=== PATIENT | male | born 1955 | race Caucasian/White ===

== ENCOUNTER → 2018-10-13 | Outpatient (REF) | payer BC ==
[2018-10-13 18:20] LABS: APPEARANCE, URINE CLEAR (CLEAR); BACTERIA, URINE AUTO NEGATIVE (NEGATIVE); BILIRUBIN, URINE AUTO NEGATIVE (NEGATIVE); BLOOD, URINE BLOOD NEGATIVE (NEGATIVE); COLOR, URINE YELLOW (YELLOW); GLUCOSE, URINE (UA) AUTO NEGATIVE (NEGATIVE); KETONE, URINE AUTO NEGATIVE (NEGATIVE); LEUKOCYTE ESTERASE, URINE AUTO NEGATIVE (NEGATIVE); MUCUS, URINE SMALL (NEGATIVE); NITRITE, URINE AUTO NEGATIVE (NEGATIVE); PROTEIN, URINE AUTO NEGATIVE (NEGATIVE); RBC, URINE AUTO 0 /HPF (0-3); SPECIFIC GRAVITY URINE AUTO 1.021 (1.002-1.035); SQUAMOUS EPITHELIAL CELL UR AU 0 /HPF (0-6); WBC, URINE AUTO 0 /HPF (0-3)
== END ==
LOC: M SMT 17:26
PROVIDERS: ATTEND Urology
DX: N40.1 Benign prostatic hyperplasia with lower urinary tract symptoms (principal)

== ENCOUNTER → 2018-11-09 | Outpatient (REF) | payer BC | LOC: M SMT 18:20 | PROVIDERS: ATTEND Urology | DX: N50.811 Right testicular pain (principal) ==

== ENCOUNTER → 2018-11-26 | Outpatient (CLI) | payer BC ==
--- NOTE | 2018-11-26 17:54 | REP ---
SCROTAL ULTRASOUND: Real-time sonographic evaluation of the scrotum and contents was performed. There is no testicular mass or torsion. Right testicle measures 4.8 x 2.6 x 3.3 cm and left testicle 3.9 x 1.9 x 3.6 cm. RI right testicle 0.54 and left testicle 0.58. Small bilateral hydroceles are seen. Testicular appendage appears to be present superiorly on the right. Small cyst in the right epididymis measures 3 mm. Small cyst along the body of the left epididymis measures 4 mm. IMPRESSION: No testicular mass or torsion. Small bilateral hydroceles. Tiny cyst in each epididymis. Electronically Signed by Riki Arita MD 11/26/2018 06:56 P
== END ==
LOC: M RAD 14:05
PROVIDERS: ATTEND Urology
DX: N50.811 Right testicular pain (principal)

== ENCOUNTER → 2019-02-01 | Outpatient (CLI) | payer BC ==
[2019-02-01 15:03] LABS: BASO % 0.5 % (0.0-1.0); EOS # 0.2 10^3/uL (0.0-0.5); EOS % 2.3 % (0.0-3.0); HEMOGLOBIN 15.9 g/dl (13.5-17.5); LYMPH # 1.4 10^3/uL (1.5-5.0); LYMPH % 15.9 % (24.0-44.0); MEAN CORPUSCULAR HEMOGLOBIN 30.6 pg (27.0-33.0); MEAN CORPUSCULAR HGB CONC 31.8 g/dl (32.0-36.5); MEAN CORPUSCULAR VOLUME 96.3 fl (80.0-96.0); MONO # 0.7 10^3/uL (0.0-0.8); MONO % 7.8 % (0.0-5.0); NEUTROPHILS # 6.2 10^3/uL (1.5-8.5); PLATELET COUNT, AUTOMATED 249 10^3/uL (150-450); RED BLOOD COUNT 5.19 10^6/uL (4.30-6.10); WHITE BLOOD COUNT 8.6 10^3/uL (4.0-10.0)
[2019-02-01 15:14] LABS: BLOOD UREA NITROGEN 16 MG/DL (7-18); CREATININE FOR GFR 0.84 MG/DL (0.70-1.30); GLOMERULAR FILTRATION RATE > 60.0 (>49)
== END ==
LOC: M LAB 14:21
PROVIDERS: ATTEND Internal Medicine Gastroenterology
DX: K92.1 Melena (principal)

== ENCOUNTER → 2019-02-18 | Outpatient (CLI) | payer BC ==
[~2019-02-18] MED LIST: GLUCAGON FOR INJ 1 MG VIAL (J1610) As Ordered ONE; ISOVUE-370 76% 100ML VIAL (Q9967) As Ordered ONE; VoLumen 0.1% SUSPENSION 450ML BOTTLE As Ordered ONE
--- NOTE | 2019-02-23 18:06 | REP ---
CT Enterography: With IV and oral contrast. History: Abnormal findings on diagnostic imaging. Comparison study: Comparison CT study has been retrieved from August 01, 2018 [facility] study. This study is reported as showing haziness in the mid abdominal mesentery with prominent mesenteric lymph nodes consistent with mesenteric panniculitis. CT enterography technique: The patient ingested oral Volumen for PO contrast per protocol. 0.6 mg of intravenous glucagon is administered. 100 ml of Isovue 370 is given intravenously for intravenous contrast. Helical scanning is acquired. Arterial phase and delayed phase imaging was acquired. Thick slab coronal and sagittal MIP images are generated. In addition coronal and sagittal multiplanar re-formation images are generated and reviewed along with axial images. CT enterography findings: Preliminary linux engineer radiograph is unremarkable. There is linear fibrosis versus atelectasis in the right base. Some bronchiectasis is seen in the lower lobes bilaterally and there is some inspissated endobronchial material in the right lower lobe segmental bronchi. This is unchanged. The liver contains a small hypervascular area in the left lobe, unchanged from the August 01 prior study, 1.2 cm in greatest diameter, consistent with hemangioma. No other focal liver lesion is appreciated. The spleen is normal in size and homogeneous in texture. No adrenal lesion is seen on either side. The patient is status post gastric bypass procedure. No pancreatic abnormality is seen. The gallbladder is unremarkable. The kidneys enhance symmetrically and are morphologically intact. No retroperitoneal mass is seen. The previously noted pattern of edema in the small bowel mesentery is again seen unchanged. The mesenteric veins appear patent as do mesenteric arteries. There are a few scattered small normal-sized lymph nodes. This is compatible with mesenteric panniculitis and is morphologically unchanged. Small and large bowel loops are unremarkable. Normal appendix is seen. Prostate is enlarged. There is a left inguinal hernia containing a fairly large segment of the urinary bladder. This is unchanged. Maximum intensity projection images and delayed postcontrast images show no evidence of hyper-enhancement, focally absent bowel wall enhancement, or bowel wall thickening. No mass lesion is seen. There are small cortical cysts affecting the kidneys bilaterally. Impression: Status post gastric bypass procedure. Edematous fat in the small bowel mesentery with a few scattered normal-sized lymph nodes consistent with mesenteric panniculitis unchanged. No vascular abnormality is seen. Left inguinal hernia containing a large portion of the urinary bladder is again noted. The prostate is enlarged. Electronically Signed by Ben Lee MD 02/24/2019 08:09 A
== END ==
LOC: M RAD 11:15
PROVIDERS: ATTEND Internal Medicine Gastroenterology
DX: R93.3 Abnormal findings on diagnostic imaging of other parts of digestive tract (principal); J47.9 Bronchiectasis, uncomplicated; K76.89 Other specified diseases of liver; N40.0 Benign prostatic hyperplasia without lower urinary tract symptoms; Z98.84 Bariatric surgery status; K40.90 Unilateral inguinal hernia, without obstruction or gangrene, not specified as recurrent
CPT/HCPCS: 74177; J1610; Q9967

== ENCOUNTER 2019-04-08 07:04 | Day surgery (SDC) | payer BC ==
[~2019-04-08] VITALS: Ht 175.3 cm; Wt 92.5 kg
[~2019-04-08 07:04] MED LIST changes: +ANOR1AER IN; +B-12100T2 PO; +FENO145T7 PO; +FEROCAP3 PO; +FLOM0.4C39 PO; +FLUT50SP33; -GLUCAGON FOR INJ 1 MG VIAL (J1610) As Ordered ONE; -ISOVUE-370 76% 100ML VIAL (Q9967) As Ordered ONE; +K-TA10TA2 PO; +LR 1,000 ML IV ONE; +MUCI600T31 PO; +SIMV40TA20 PO; +TRIA37.5 PO; +VIAG100T PO; +VITA400T15 PO; -VoLumen 0.1% SUSPENSION 450ML BOTTLE As Ordered ONE; +ceFAZolin SOD 1 GM in D5W MINI-BAG PLUS 50 ML IV ONE; +ceFAZolin SOD 2 GM in IV 1 EA IV ONE
[2019-04-08] MEDS ORDERED: AMLO5TAB6 PO (07:34)
[2019-04-08] MEDS ORDERED: HYDR25TAB PO (07:34)
[2019-04-08] MEDS ORDERED: propofoL 200 MG/20 ML VIAL As Ordered ONE (08:07)
[2019-04-08] MEDS ORDERED: ONDANSETRON 4MG/2ML VIAL (J2405) As Ordered ONE (08:07)
[2019-04-08] MEDS ORDERED: dexameTHASONE 4 MG/ML 1ML VIAL (J1100) As Ordered ONE (08:07)
[2019-04-08] MEDS ORDERED: LIDOCAINE 2% INJ 100 MG/5 ML SDV (FOR ANES.) As Ordered ONE (08:07)
[2019-04-08] MEDS ORDERED: MIDAZOLAM INJ 2 MG/2 ML VIAL (J2250) As Ordered ONE (08:08)
[2019-04-08] MEDS ORDERED: fentaNYL 100 MCG/2 ML INJECTION (J3010) As Ordered ONE (08:08)
[2019-04-08] MEDS ORDERED: BUPIVACAINE HCL 0.25% 30 ML VIAL As Ordered ONE (09:03)
[2019-04-08] MEDS ORDERED: BACITRACIN OINT 30GM As Ordered ONE (09:03)
[2019-04-08] MEDS ORDERED: ACETAMINOPHEN 1000MG 100ML IV BTL (OFIRMEV) (J0131 PER 10MG) As Ordered ONE (09:38)
[2019-04-08] MEDS ORDERED: PERCOCET 5MG/325MG TAB As Ordered ONE (10:35)
[2019-04-08] MEDS: PERCOCET 5MG/325MG TAB PO PRN ×2 (10:40→11:15)
[2019-04-08] MEDS ORDERED: LR 1,000 ML IV SCH (11:00)
[2019-04-08] MEDS ORDERED: METOCLOPRAMIDE INJ 10MG/2ML VIAL (J2765) IV PRN (11:00)
[2019-04-08] MEDS ORDERED: ONDANSETRON 4MG/2ML VIAL (J2405) IV PRN (11:00)
[2019-04-08] MEDS ORDERED: fentaNYL 100 MCG/2 ML INJECTION (J3010) IV PRN (11:00)
[2019-04-08] MEDS ORDERED: PERCOCET 5MG/325MG TAB PO PRN (11:00)
[2019-04-08 13:12] VITALS: BP 125/77
--- NOTE | 2019-04-08 18:54 | RO ---
DATE OF PROCEDURE: 04/08/2019 PREPROCEDURE DIAGNOSIS: Chronic right epididymal orchitis and chronic right testicular pain. POSTPROCEDURE DIAGNOSIS: Chronic right epididymal orchitis and chronic right testicular pain. PROCEDURE: Right simple orchiectomy. SURGEON: Manjit Kerr MD PALLIATIVE MEDICINE PHYSICIAN: None. ANESTHESIA: General. OPERATIVE INDICATIONS: This is a 63-year-old male with intractable pain due to chronic right epididymal orchitis who has not responded to any treatments. He was brought to the operating room for the above listed procedure. DESCRIPTION OF PROCEDURE: The patient was brought to the operating room and general anesthesia was induced. Prophylactic antibiotics were infused. He was then placed in the supine position and prepped and draped in the usual sterile fashion. At this point, an approximately 3-4 cm transverse incision was made over the right hemiscrotum. We then dissected down through the scrotal wall layers and then the testicle delivered out of the right hemiscrotum. We then dissected the spermatic cord as high as we could and then the cord was ligated. We put a large Shivani clamp on the proximal aspect of the cord and then distal to that the spermatic cord packet was into two different packets and two Shivani clamps were placed on that. The spermatic cord was then transected distal to the last two Shivani clamps. Each of the packets were then ligated with #0 Vicryl ties. I then placed an #0 Vicryl suture ligature just proximal to the most proximal Shivani clamp around the entire cord. Once that was done, the clamps were removed. It was checked for hemostasis. Any areas of bleeding were controlled with electrocautery. The right hemiscrotum was then irrigated out and then we began to close. First the dartos was closed with a running #2-0 Vicryl suture. We then closed the skin with interrupted #2-0 chromic sutures. Dressings were then applied, and this marked the conclusion of the procedure. The patient was then awakened from anesthesia and transported to the recovery room in stable condition. Estimated blood loss is 5 mL. Complications: None. Specimens: Right testicle. Plan: The patient will followup in the clinic in a few weeks for a postoperative visit.
== END 2019-04-08 13:13 | disposition home or self-care (01) ==
LOC: M SDC 07:04
PROVIDERS: ATTEND Urology
DX: N45.3 Epididymo-orchitis (principal); N50.811 Right testicular pain; I10 Essential (primary) hypertension; E78.5 Hyperlipidemia, unspecified; J44.9 Chronic obstructive pulmonary disease, unspecified; D64.9 Anemia, unspecified; Z87.891 Personal history of nicotine dependence; Z79.899 Other long term (current) drug therapy
CPT/HCPCS: 54520; 88305; J0131; J0690; J1100; J2250; J2405; J3010

== ENCOUNTER → 2019-05-23 | Outpatient (CLI) | payer MEDICARE ==
[~2019-05-23] MED LIST changes: +AMLO5TAB6 PO; +CALC600C3 PO; +GLYC1SUP4 PR; +HYDR25TAB PO; -LR 1,000 ML IV ONE; +PEG1POW PO; +SM S160C PO; -ceFAZolin SOD 1 GM in D5W MINI-BAG PLUS 50 ML IV ONE; -ceFAZolin SOD 2 GM in IV 1 EA IV ONE
== END ==
LOC: M LAB 07:55
PROVIDERS: ATTEND Urology
DX: E29.1 Testicular hypofunction (principal)

== ENCOUNTER → 2019-05-23 | Outpatient (REF) | payer MEDICARE | LOC: M LAB REF 17:08 | PROVIDERS: ATTEND Physician Assistant | DX: J44.9 Chronic obstructive pulmonary disease, unspecified (principal) ==

== ENCOUNTER → 2019-05-31 | Outpatient (CLI) | payer MEDICARE ==
--- NOTE | 2019-05-31 15:24 | REP ---
Clinical: Lung screening. History smoking. Comparison: 10/20/2017 Technique: Axial low-dose noncontrast images from the thoracic inlet to the upper abdomen using lung screening technique. Findings: The lung amato demonstrate advanced COPD/emphysematous changes with bronchiectasis. There is moderate chronic-appearing bibasilar fibroatelectatic changes (left greater than right) along with minimal scarring at the lingula and basilar right middle lobe. No obvious significant nodule or mass lesion is appreciated. No effusion. No pneumothorax. Tracheobronchial tree is relatively patent. Atherosclerotic changes to the thoracic aorta and coronary arteries noted. Impression: Lung-RADS category II. Advanced emphysematous disease and chronic stable changes when compared to outside examination dated 2017. No significant nodule or mass lesion appreciated. Management recommendations include annual low-dose follow-up examination. Electronically Signed by Godwin Brothers MD 05/31/2019 03:16 P
== END ==
LOC: M RAD 14:56
PROVIDERS: ATTEND Internal Medicine Pulmonary Disease
DX: Z87.891 Personal history of nicotine dependence (principal)

== ENCOUNTER → 2019-07-21 | Outpatient (CLI) | payer MEDICARE ==
[2019-07-21 10:55] LABS: HEMATOCRIT 45.3 % (42.0-52.0); HEMOGLOBIN 15.2 g/dl (13.5-17.5); MEAN CORPUSCULAR HEMOGLOBIN 31.9 pg (27.0-33.0); MEAN CORPUSCULAR HGB CONC 33.6 g/dl (32.0-36.5); MEAN CORPUSCULAR VOLUME 95.2 fl (80.0-96.0); PLATELET COUNT, AUTOMATED 218 10^3/uL (150-450); RED BLOOD COUNT 4.76 10^6/uL (4.30-6.10); WHITE BLOOD COUNT 4.9 10^3/uL (4.0-10.0)
[2019-07-21 13:12] LABS: ALBUMIN 3.7 GM/DL (3.2-5.2); ALT/SGPT 45 U/L (12-78); BILIRUBIN,TOTAL 0.6 MG/DL (0.2-1.0); BLOOD UREA NITROGEN 19 MG/DL (7-18); CALCIUM LEVEL 8.6 MG/DL (8.8-10.2); CARBON DIOXIDE LEVEL 35 MEQ/L (21-32); CHLORIDE LEVEL 103 MEQ/L (98-107); CREATININE FOR GFR 0.72 MG/DL (0.70-1.30); FERRITIN 168 NG/ML (26-388); GLOMERULAR FILTRATION RATE > 60.0 (>49); GLUCOSE, FASTING 84 MG/DL (70-100); IRON (FE) 71 UG/DL (65-175); POTASSIUM SERUM 3.6 MEQ/L (3.5-5.1); SODIUM LEVEL 142 MEQ/L (136-145); TOTAL PROTEIN 6.5 GM/DL (6.4-8.2)
[2019-07-21 13:13] LABS: TOTAL 25(OH) VITAMIN D 64.9 NG/ML (30.0-100.0)
[2019-07-21 13:14] LABS: FOLATE 16.8 NG/ML (>5.4); PTH INTACT 66.1 PG/ML (18.5-88.0); VITAMIN B12 LEVEL 750 PG/ML (247-911)
== END ==
LOC: M WUC 08:25
PROVIDERS: ATTEND Physician Assistant Surgical
DX: K90.9 Intestinal malabsorption, unspecified (principal)

== ENCOUNTER → 2019-07-21 | Outpatient (CLI) | payer MEDICARE ==
[2019-07-21 10:55] LABS: BASO % 0.8 % (0.0-1.0); EOS # 0.2 10^3/uL (0.0-0.5); EOS % 3.8 % (0.0-3.0); HEMOGLOBIN 14.7 g/dl (13.5-17.5); LYMPH % 19.2 % (24.0-44.0); MEAN CORPUSCULAR HEMOGLOBIN 31.1 pg (27.0-33.0); MEAN CORPUSCULAR HGB CONC 32.7 g/dl (32.0-36.5); MEAN CORPUSCULAR VOLUME 95.3 fl (80.0-96.0); MONO # 0.4 10^3/uL (0.0-0.8); MONO % 7.9 % (0.0-5.0); NEUTROPHILS # 3.4 10^3/uL (1.5-8.5); NEUTROPHILS % 67.9 % (36.0-66.0); PLATELET COUNT, AUTOMATED 214 10^3/uL (150-450); RED BLOOD COUNT 4.72 10^6/uL (4.30-6.10); WHITE BLOOD COUNT 4.9 10^3/uL (4.0-10.0)
[2019-07-21 13:16] LABS: ALBUMIN 3.6 GM/DL (3.2-5.2); ALT/SGPT 43 U/L (12-78); BILIRUBIN,TOTAL 0.6 MG/DL (0.2-1.0); BLOOD UREA NITROGEN 19 MG/DL (7-18); CALCIUM LEVEL 8.3 MG/DL (8.8-10.2); CARBON DIOXIDE LEVEL 32 MEQ/L (21-32); CHLORIDE LEVEL 102 MEQ/L (98-107); CHOLESTEROL LEVEL 133 MG/DL (<200); CHOLESTEROL RISK RATIO 2.829 (<5); GLOMERULAR FILTRATION RATE > 60.0 (>49); GLUCOSE, FASTING 79 MG/DL (70-100); HDL CHOLESTEROL 47 MG/DL (>40); LDL CHOLESTEROL 72 MG/DL (<100); NON-HDL-C 86 MG/DL; POTASSIUM SERUM 3.6 MEQ/L (3.5-5.1); SODIUM LEVEL 142 MEQ/L (136-145); TOTAL PROTEIN 6.6 GM/DL (6.4-8.2); TRIGLYCERIDES LEVEL 72 MG/DL (<150)
== END ==
LOC: M WUC 08:21
PROVIDERS: ATTEND Physician Assistant
DX: I10 Essential (primary) hypertension (principal); E78.2 Mixed hyperlipidemia; N40.1 Benign prostatic hyperplasia with lower urinary tract symptoms; J44.9 Chronic obstructive pulmonary disease, unspecified
CPT/HCPCS: 36415; 80053; 80061; 85025; G0103

== ENCOUNTER → 2019-08-20 | Outpatient (CLI) | payer MEDICARE ==
[~2019-08-20] MED LIST changes: +APPL300T4 PO; +BLAC1CAP2 PO; +FISH1000 PO; +MULTCAP PO; +VITA100T59 PO; +VITA200048 PO; +VITA50TA47 PO
== END ==
LOC: M LABSMTC 09:14
PROVIDERS: ATTEND Anesthesiology
DX: Z03.818 Encounter for observation for suspected exposure to other biological agents ruled out (principal); Z11.59 Encounter for screening for other viral diseases
CPT/HCPCS: C9803; U0003

== ENCOUNTER → 2019-08-20 | Outpatient (CLI) | payer MEDICARE ==
--- NOTE | 2019-08-25 11:12 | SLEEPCENT ---
DATE OF STUDY: 08/20/2019 ORDERED BY: Godwin Valente Nocturnal polysomnography was performed for evaluation of sleep physiology in this patient with prior history of obstructive sleep apnea syndrome. 7 hours and 15 minutes of data were reviewed. There were 348 minutes of sleep identified. Sleep latency was mildly prolonged at 17 minutes. REM latency was short at 62 minutes. Sleep architecture initially fragmented, improved after interventions were made. Overall sleep efficiency was 81.3%. The patient's electrocardiogram showed a sinus rhythm with an average heart rate of 62 beats per minute. Occasional PVCs were noted. Electroencephalogram (EEG) showed normal waveforms for awake and sleep. There were 111 respiratory events identified of 10 seconds in duration or greater for an apnea-hypopnea index of 19.1. Having clearly established the presence of obstructive sleep apnea syndrome early in testing, the study was stopped before 1:00 a.m. for the application of pressure therapy. The patient was fit with a ResMed N20 Air Fit nasal mask of large size and 5 cm of water pressure were applied to the circuit and the lights were extinguished. For the remaining hours of testing, pressure titration was performed to an optimal C-PAP pressure of +7, with which, the patient slept through REM without respiratory event or significant oxygen desaturations. IMPRESSION: Obstructive sleep apnea syndrome (G47.33). RECOMMENDATION: Nightly use of pressure therapy at 7 cm of water.
== END ==
LOC: M SLEEP 20:00
PROVIDERS: ATTEND Physician Assistant
DX: G47.33 Obstructive sleep apnea (adult) (pediatric) (principal)

== ENCOUNTER 2019-08-23 06:40 | Day surgery (SDC) | payer BC, MEDICARE ==
[~2019-08-23] VITALS: Ht 175.3 cm; Wt 93.4 kg
[~2019-08-23 06:40] MED LIST changes: +AMLO1TAB24 PO; -AMLO5TAB6 PO; -ANOR1AER IN; +ANOR1AER INH; +HYDR-3490 PO; -HYDR25TAB PO; +NS 1,000 ML IV ONE
[2019-08-23] MEDS ORDERED: LIDOCAINE 2% 100MG/5ML SDV (FOR ANES.) As Ordered ONE (08:18)
[2019-08-23] MEDS ORDERED: propofoL 200 MG/20 ML VIAL As Ordered ONE ×2 (08:18→09:01)
--- NOTE | 2019-08-23 09:13 | ROOR ---
Patient Name: Jake Mosley Procedure Date: 08/23/2019 8:26 AM Date of : 1955 Age: 64 Room: [facility] Gender: Male Note Status: Finalized Procedure: Colonoscopy Indications: Hematochezia Providers: Wilder MIGUEL MD Referring MD: NATA Velásquez Requesting Provider: Medicines: Monitored Anesthesia Care Complications: No immediate complications. Procedure: Pre-Anesthesia Assessment: - The heart rate, respiratory rate, oxygen saturations, blood pressure, adequacy of pulmonary ventilation, and response to care were monitored throughout the procedure. The Colonoscope was introduced through the anus and advanced to the cecum, identified by appendiceal orifice and ileocecal valve. The patient tolerated the procedure well. The quality of the bowel preparation was adequate and fair. The colonoscopy was technically difficult and complex due to a redundant colon. Successful completion of the procedure was aided by applying abdominal pressure. Findings: The perianal and digital rectal examinations were normal. The colon (entire examined portion) was moderately redundant. Two sessile polyps were found in the cecum and appendiceal orifice. The polyps were 7 to 8 mm in size. These polyps were removed with a cold snare. Resection and retrieval were complete. Internal hemorrhoids were found during retroflexion. The hemorrhoids were medium-sized. The exam was otherwise without abnormality on direct and retroflexion views. Impression: - Redundant colon. - Two 7 to 8 mm polyps in the cecum and at the appendiceal orifice, removed with a cold snare. Resected and retrieved. - Internal hemorrhoids. - The examination was otherwise normal on direct and retroflexion views. Recommendation: - Repeat colonoscopy in 3 years for surveillance. - Repeat colonoscopy in 3 years because the bowel preparation was suboptimal. Wilder Miguel MD Wilder MIGUEL MD 08/23/2019 9:13:18 AM Electronically signed by Wilder MIGUEL MD Number of Addenda: 0 Note Initiated On: 08/23/2019 8:26 AM Estimated Blood Loss: Estimated blood loss: none.
[2019-08-23 09:40] VITALS: BP 108/69
[2020-03-19] MEDS ORDERED: MM S100C PO (09:58)
[2020-03-19] MEDS ORDERED: MUCI1TAB16 PO (09:58)
[2020-03-19] MEDS ORDERED: VENTAER INH (09:58)
[2020-03-19] MEDS ORDERED: ALBU83IN INH (09:58)
[2020-03-19] MEDS ORDERED: OMEP1CAP73 PO (09:58)
[2020-03-19] MEDS ORDERED: VITA-243 PO (09:58)
[2020-03-19] MEDS ORDERED: ATOR1TAB19 PO (09:58)
[2020-03-19] MEDS ORDERED: OYST1TAB5 PO (09:58)
[2020-03-19] MEDS ORDERED: D31000TA2 PO (09:58)
[2020-03-19] MEDS ORDERED: collagen PO (09:58)
== END 2019-08-23 09:59 | disposition home or self-care (01) ==
LOC: M OPP 06:40
PROVIDERS: ATTEND Internal Medicine Gastroenterology
DX: D12.0 Benign neoplasm of cecum (principal); K64.8 Other hemorrhoids; Q43.8 Other specified congenital malformations of intestine; K92.1 Melena; J44.9 Chronic obstructive pulmonary disease, unspecified; Z79.899 Other long term (current) drug therapy; Z87.891 Personal history of nicotine dependence; Z98.84 Bariatric surgery status

== ENCOUNTER → 2020-01-13 | Outpatient (CLI) | payer SELFPAY ==
[~2020-01-13] MED LIST changes: +ANOR1AER IN; -ANOR1AER INH; -HYDR-3490 PO; +HYDR25TAB PO; -NS 1,000 ML IV ONE
== END ==
LOC: M LABSMTC 12:32
PROVIDERS: ATTEND Pediatrics
DX: Z20.828 Contact with and (suspected) exposure to other viral communicable diseases (principal)

== ENCOUNTER → 2020-03-21 | Outpatient (CLI) | payer MEDICARE ==
[~2020-03-21] MED LIST changes: +ALBU83IN INH; -ANOR1AER IN; +ANOR1AER INH; +ATOR1TAB19 PO; +D31000TA2 PO; +MM S100C PO; +MUCI1TAB16 PO; +OMEP1CAP73 PO; +OYST1TAB5 PO; +VENTAER INH; +VITA-243 PO; +collagen PO
[2020-03-21 16:27] LABS: BASO % 0.3 % (0.0-1.0); EOS # 0.2 10^3/uL (0.0-0.5); EOS % 3.9 % (0.0-3.0); HEMATOCRIT 44.5 % (42.0-52.0); HEMOGLOBIN 14.7 g/dl (13.5-17.5); LYMPH # 1.3 10^3/uL (1.5-5.0); LYMPH % 20.2 % (24.0-44.0); MEAN CORPUSCULAR HEMOGLOBIN 31.3 pg (27.0-33.0); MEAN CORPUSCULAR VOLUME 94.9 fl (80.0-96.0); MONO # 0.6 10^3/uL (0.0-0.8); MONO % 10.3 % (0.0-5.0); NEUTROPHILS % 64.7 % (36.0-66.0); PLATELET COUNT, AUTOMATED 232 10^3/uL (150-450); RED BLOOD COUNT 4.69 10^6/uL (4.30-6.10); WHITE BLOOD COUNT 6.2 10^3/uL (4.0-10.0)
[2020-03-21 16:30] LABS: APPEARANCE, URINE CLEAR (CLEAR); BACTERIA, URINE AUTO NEGATIVE (NEGATIVE); BILIRUBIN, URINE AUTO NEGATIVE (NEGATIVE); BLOOD, URINE BLOOD NEGATIVE (NEGATIVE); COLOR, URINE YELLOW (YELLOW); GLUCOSE, URINE (UA) AUTO NEGATIVE (NEGATIVE); KETONE, URINE AUTO NEGATIVE (NEGATIVE); LEUKOCYTE ESTERASE, URINE AUTO NEGATIVE (NEGATIVE); MUCUS, URINE SMALL (NEGATIVE); NITRITE, URINE AUTO NEGATIVE (NEGATIVE); PROTEIN, URINE AUTO NEGATIVE (NEGATIVE); RBC, URINE AUTO 1 /HPF (0-3); SPECIFIC GRAVITY URINE AUTO 1.019 (1.002-1.035); SQUAMOUS EPITHELIAL CELL UR AU 0 /HPF (0-6); UROBILINOGEN, URINE AUTO 0.2 mg/dL (0.0-2.0); WBC, URINE AUTO 0 /HPF (0-3)
[2020-03-21 16:46] LABS: PROTHROMBIN TIME 13.4 SECONDS (12.5-14.3)
[2020-03-21 16:47] LABS: PARTIAL THROMBOPLASTIN TIME 28.8 SECONDS (24.2-38.5)
[2020-03-21 17:03] LABS: BLOOD UREA NITROGEN 20 MG/DL (7-18); CARBON DIOXIDE LEVEL 34 MEQ/L (21-32); CHLORIDE LEVEL 103 MEQ/L (98-107); CREATININE FOR GFR 0.68 MG/DL (0.70-1.30); GLOMERULAR FILTRATION RATE > 60.0 (>49); GLUCOSE, FASTING 82 MG/DL (70-100); SODIUM LEVEL 141 MEQ/L (136-145)
== END ==
LOC: M LAB 15:19
PROVIDERS: ATTEND Nurse Practitioner Family
DX: Z01.812 Encounter for preprocedural laboratory examination (principal)

== ENCOUNTER → 2020-03-28 | Outpatient (CLI) | payer MEDICARE ==
[~2020-03-28] MED LIST changes: +HYDR-3490 PO; -HYDR25TAB PO
== END ==
LOC: M LABSMTC 09:35
PROVIDERS: ATTEND Anesthesiology
DX: Z01.812 Encounter for preprocedural laboratory examination (principal); Z20.822 Contact with and (suspected) exposure to COVID-19

== ENCOUNTER 2020-04-02 05:58 | Day surgery (SDC) | payer MEDICARE ==
[~2020-04-02] VITALS: Ht 175.3 cm; Wt 91.2 kg
[2020-04-02] MEDS ORDERED: LR 1,000 ML IV ONE (06:00)
[2020-04-02] MEDS ORDERED: ceFAZolin SOD 2 GM in IV 1 EA IV ONE (06:00)
[2020-04-02] MEDS ORDERED: propofoL 200 MG/20 ML VIAL As Ordered ONE (07:14)
[2020-04-02] MEDS ORDERED: LIDOCAINE 2% 100MG/5ML SDV (FOR ANES.) As Ordered ONE ×3 (07:14→07:16)
[2020-04-02] MEDS ORDERED: fentaNYL 100 MCG/2 ML INJECTION (J3010) As Ordered ONE (07:15)
[2020-04-02] MEDS ORDERED: METOCLOPRAMIDE INJ 10MG/2ML VIAL (J2765 PER 1) As Ordered ONE ×2 (07:15→10:40)
[2020-04-02] MEDS ORDERED: ROCURONIUM BROMIDE 50 MG/5 ML VIAL As Ordered ONE ×2 (07:15→09:29)
[2020-04-02] MEDS ORDERED: dexameTHASONE 4 MG/ML 1ML VIAL (J1100 PER 1MG) As Ordered ONE (07:15)
[2020-04-02] MEDS ORDERED: MIDAZOLAM INJ 2MG/2ML VIAL (J2250 PER 1MG) As Ordered ONE (07:15)
[2020-04-02] MEDS ORDERED: ONDANSETRON 4MG/2ML VIAL As Ordered ONE (07:21)
[2020-04-02] MEDS ORDERED: LIDOCAINE 1% MDV 20ML VIAL As Ordered ONE (08:02)
[2020-04-02] MEDS ORDERED: BUPIVACAINE HCL 0.25% 30ML VIAL As Ordered ONE (08:03)
[2020-04-02] MEDS ORDERED: BUPIVACAINE HCL 0.25% 10ML VIAL As Ordered ONE ×2 (08:10→08:13)
[2020-04-02] MEDS ORDERED: LACRILUBE (AKWA TEARS) OPHTH OINT 3.5 GM As Ordered ONE (09:43)
[2020-04-02] MEDS ORDERED: ACETAMINOPHEN 1000MG 100ML IV BTL (OFIRMEV) (J0131 PER 10MG) As Ordered ONE (10:20)
[2020-04-02] MEDS ORDERED: SUGAMMADEX SODIUM 500 MG/5 ML VIAL (BRIDION) As Ordered ONE (10:22)
[2020-04-02] MEDS ORDERED: KETOROLAC 60MG 2ML VIAL As Ordered ONE (10:23)
[2020-04-02] MEDS ORDERED: LR 1,000 ML IV SCH (11:00)
[2020-04-02] MEDS ORDERED: oxyCODONE 5MG TAB PO PRN (11:00)
[2020-04-02] MEDS ORDERED: fentaNYL 100 MCG/2 ML INJECTION (J3010) IV PRN (11:00)
[2020-04-02] MEDS ORDERED: ONDANSETRON 4MG/2ML VIAL IV PRN ×2 (11:00→11:15)
[2020-04-02] MEDS ORDERED: ePHEDrine SULFATE 25 MG/5 ML(5MG/ML) SYRINGE As Ordered ONE (11:33)
--- NOTE | 2020-04-02 11:33 | ROOPDOC ---
[facility] Report Of Operation Report of Operation DATE OF PROCEDURE: 04/02/20 PREPROCEDURE DIAGNOSES: left possible right inguinal hernia. POSTPROCEDURE DIAGNOSES: multiple defects at the left groin (indirect with cord lipoma, small direct inguinal hernia, moderate suprapubic hernia containing bladder PROCEDURE: Robotic assisted laparoscopic repair of multiple left groin hernias (rTAPP with 16x12 cm Progrip mesh). transversus abdominis plane block using 1% lidocaine and 1/4% Marcaine; SURGEON: Lenny Mix MD LABORATORY COURIER: Rosemarie Steiner NP this bowel assisted me with placement of ports, instrument exchange and adjustment of the robotic arms, placement of mesh, sutures and closing of the ports. ANESTHESIA: General Anesthesia. ESTIMATED BLOOD LOSS: Approximately 10 mL. COMPLICATIONS: none. REMARKS: 64-year-old male had a history of gastric sleeve in appropriate weight loss started noticing a lump on the left side of the suprapubic area with associated discomfort with straining, moving his bowels. He prior imaging studies that were done not related to the hernia but a year prior which shows w hat looks to be an indirect hernia defect containing part of the bladder possibly a direct hernia defect and also possible cord lipoma on the right side. PROCEDURE NOTE: multiple hernia defects, small indirect with bulky cord lipoma, small direct inguinal hernia containing preperitoneal fat tissue, moderate sized suprapubic hernia containing bladder. No hernia defect at the right side. DESCRIPTION OF PROCEDURE: Patient received 2 g of Ancef IV preoperatively for wound prophylaxis. Patient was brought to the operating room, placed supine on the operating table. Teds stockings and sequential Compression boots placed in both lower extremities for DVT prophylaxis. General endotracheal anesthesia started. I had a Bill catheter placed as his preoperative imaging shows part of the urinary bladder within the hernia. His abdomen and groin/pelvic area then prepped and draped in the usual sterile fashion. We paused for a surgical timeout using both pre- incision safety checklist to verify correct patient, procedure site and additional clinical information prior to beginning the procedure Entry to the abdomen done through a small incision midway b/w umbilicus and xiphisternum, deviating slightly to the right of the midline given protuberant abdomen . A Veress needle is inserted on a controlled fashion. CO2 insufflation started to pressure 15 mmHg. Using the same incision an 8 mm robotic trochar isthen placed under direct vision of a 5mm laparoscope. The insertion site is inspected for injury and none was found. Patient was then positioned on a 10 degree Trendelenburg position, tilted slightly towards the right side for adequate view of the hernia defect. I placed 3 additional 8mm working ports, one placed to the right of the umbilicus and 2 placed about 10 cm apart to the left of the umbilicus along the same line. I performed a transversus abdominis plane block using a mixture of 1% lidocaine and 1/4% Marcaine under laparoscopic guidance. The [place] robot tower was then positioned in place and the trochars docked onto the robot. The robotic instruments were placed under direct vision and positioned. I then unscrubbed and took control of the camera and the laparoscopic instruments at the surgeon's console. I used a 0 degree 8 mm robotic laparoscope, A forced bipolar forceps with bipolar cautery on left arm and A dakota-cut laparoscopic scissor with unipolar cautery in arm 1 was used, later on exhanged for a large suture cut needle tractor driver. and additional robotic grasper placed on the left sided most port After repositioning bowels away from both the left and right side of the pelvis the abdominal wall was inspected. There is a small amount of omental adhesions and cecal adhesions on the right side. The sigmoid colon course close to the internal inguinal opening which I had to lyse away from. There is a visible direct defect on the left side which was small, no peritoneal defect at the internal inguinal ring. On the right side, there are no apparent defects at the direct and indirect inguinal space. The abdominal wall is thin, with wide diastases at the midline including around the umbilicus and below it. Attenuated fat at the umbilical ligaments. After freeing up the sigmoid colon attachments to the lower portion of the internal inguinal opening on the left side, I opened up the peritoneum was opened up about 7-8 cms cm above the superior edge of the indirect ring starting at the medial umbilical ligament going laterally towards the level of the anterior superior iliac spine. The umbilical ligament was divided to create more space. I maintained a preperitoneal dissection peeling the peritoneum away from the transversalis fascia, keeping the parietal covering of the inferior epigastric vessels intact. After opening up the space medial to the inferior epigastric vessels, the preperitoneal fat tissue that is within the direct space was easily brought down. There is quite a good amount of bulky preperitoneal fat tissue and was suspected bladder medially that wouldn't drop down from the abdominal wall easily. I extended the preperitoneal flap medially past the midline to get around this bulky tissue. There seems to be a separate defect containing this at the level of the suprapubic space right of the midline but still within the lateral margins of the rectus abdominis muscle and drops down to the level of the pubic tubercle. The fat and was attributed to be portions of the urinary bladder is incarcerated over this area. Thus I turned my attention to the indirect space. A bulky cord lipoma is noted laterally and I pulled this from the inguinal ring and dissected this away from the testicular vessels and the vas deferens while leaving the inguinal cord structures intact in their anatomic space. The attachments of the peritoneum/hernia sac that going slightly into the internal ring was likewise dropped away from the testicular cord and vessels and the cord structures were prior to lysed further to gain space inferiorly. The space of Bogros was further developed mostly with blunt dissection past the level of the anterior superior iliac spine as I'm expecting that he'll need of larger mesh. After doing this I again turned my attention to the incarcerated bladder. I further developed the medial dissection past the symphysis pubis and I could see the cuvature of the ridgepubic tubercle on the right side and using this as my landmark began developing this plane towards the left side, essentially going slightly under the still incarcerated tissues. Using the extra instrument for additional retractor I carefully used grasping and blunt dissection as well as occasional sharp dissection to release the incarcerated tissues from the hernia defect as well as from the attenuated transversalis fascia was attached from. This portion took nearly an hour to complete. Once all the tissues were released they proceeded going laterally to the femoral space bringing down the fat tissues and lymph nodes from this area to accommodate the mesh. The margins of the Bogros and space of Retzius was further developed inferiorly. There was some oozing along this area of dissection which was easily controlled. Before proceeding with the placement of mesh, again turned my attention to the right side to determine whether any to dissect and look for hernia repair. Clinically I was feeling a lump slightly to the right of the midline which I thought was a direct hernia defect and on the pre-operative imaging CT there was some bulky fat tissue over the right of the midline which I thought was a cord lipoma. Comparing those images with the intraoperative findings this most likely is the incarcerated fat and bladder from the suprapubic hernia that was slightly deviating towards the right. I asked my assistant offset press operator to put pressure along the right inguinal canal to see if there is any bulging at the direct and indirect space. There was no peritoneal defects over this area and I could not see any bulging with my assistant offset press operator putting pressure at the hernia spaces. Thus I do not think there would be any hernia nor any cord lipoma at this area and I chose not to dissect the right inguinal space. I came back to the left side and used a ruler to measure the space that I created. Due to the multiple hernia defects I chose a 16 x 12 cm Pro founding partner self- fixating mesh. This was introduced into the abdomen and unfolded into the preperitoneal space going past the midline extending roughly 3 cm from the symphysis pubis medially more than 2 cm from the pelvic ridge inferiorly covering the myopectineal orifice fully including that of the suprapubic hernia. I chose to secure the mesh to make sure he does not fold putting 2-0 Vicryl at the Star's ligament and at the symphysis pubis and another one at the medial edge on the upper portion of the mesh at the rectus abdominis muscle. Once the mesh is appropriately placed and securely covering the myopectineal orifice I examined the space for adequate hemostasis. The peritoneal flap was then closed using a running suture of 30V LOC. After a final survey of the abdomen and pelvis for any signs of injury, The instruments were removed. The abdomen was deflated. All ports were removed. The skin incisions were closed with 4-0 Monocryl in subcuticular fashion. The incisions were covered with Dermabond. The port sites were again infiltrated with local anesthesia. An ilioinguinal nerve block was also performed. Patient was promptly awakened, extubated and brought to the recovery room stable Count of sponges and instruments were verified correct. LENNY MIX MD Apr 02, 2020 11:33
[2020-04-02] MEDS ORDERED: GLYCOPYRROLATE INJ 0.2 MG/ML 2 ML VIAL As Ordered ONE (12:08)
[2020-04-02 16:40] VITALS: BP 136/73
== END 2020-04-02 16:40 | disposition home or self-care (01) ==
LOC: M SDC 05:58
PROVIDERS: ATTEND Surgery
DX: K40.30 Unilateral inguinal hernia, with obstruction, without gangrene, not specified as recurrent (principal); I10 Essential (primary) hypertension; J44.9 Chronic obstructive pulmonary disease, unspecified; G47.30 Sleep apnea, unspecified; Z98.84 Bariatric surgery status; Z79.899 Other long term (current) drug therapy; E78.00 Pure hypercholesterolemia, unspecified; N40.0 Benign prostatic hyperplasia without lower urinary tract symptoms; Z79.51 Long term (current) use of inhaled steroids
CPT/HCPCS: 49650; 64486; C1781; J0131; J0690; J1100; J1885; J2250; J2405; J2765; J3010; S2900

== ENCOUNTER → 2020-05-18 | Outpatient (CLI) | payer MEDICARE ==
[~2020-05-18] MED LIST changes: -PEG1POW PO; +POLY17PO10 PO
[2020-05-22 00:07] LABS: PSA TOTAL 3.9 ng/mL (0.0-4.0)
== END ==
LOC: M LAB 16:20
PROVIDERS: ATTEND Urology
DX: Z12.5 Encounter for screening for malignant neoplasm of prostate (principal)
CPT/HCPCS: 36415; 84154; G0463

== ENCOUNTER → 2020-05-31 | Outpatient (CLI) | payer MEDICARE ==
[2020-05-31 15:33] LABS: ALBUMIN 3.9 GM/DL (3.2-5.2); ALT/SGPT 38 U/L (12-78); BILIRUBIN,TOTAL 0.5 MG/DL (0.2-1.0); BLOOD UREA NITROGEN 17 MG/DL (7-18); CALCIUM LEVEL 9.2 MG/DL (8.8-10.2); CARBON DIOXIDE LEVEL 35 MEQ/L (21-32); CHLORIDE LEVEL 102 MEQ/L (98-107); CREATININE FOR GFR 0.78 MG/DL (0.70-1.30); FREE T4 1.02 NG/DL (0.76-1.46); GLOMERULAR FILTRATION RATE > 60.0 (>49); GLUCOSE, FASTING 88 MG/DL (70-100); POTASSIUM SERUM 3.6 MEQ/L (3.5-5.1); SODIUM LEVEL 141 MEQ/L (136-145); THYROID STIMULATING HORMONE 0.882 uIU/ML (0.358-3.740)
[2020-05-31 15:47] LABS: HEMOGLOBIN A1c 5.2 %
== END ==
LOC: M LAB 12:23
PROVIDERS: ATTEND Physician Assistant Medical
DX: E16.2 Hypoglycemia, unspecified (principal); Z79.899 Other long term (current) drug therapy

== ENCOUNTER → 2020-06-05 | Outpatient (CLI) | payer MEDICARE ==
--- NOTE | 2020-06-05 13:17 | REPPI ---
INDICATION: ELEVATED PSA. COMPARISON: None. TECHNIQUE: Transrectal prostate sonography. FINDINGS: Trans rectal prostate sonography demonstrates unremarkable seminal vesicles. Prostate gland is heterogeneous, with calcifications and cystic changes noted. Glandular dimensions are measured at 5.4 x 6.5 x 4.3 cm with a calculated glandular volume of 79 ml. There are 2 prostate nodules in the mid gland on the right. At the apex there is a 2.5 cm nodule and a 0.8 cm nodule is present. Transrectal sonographic guidance is provided to Dr. Kerr who performed trans rectal ultrasound guided needle biopsy procedure. IMPRESSION: Transrectal prostate sonographic findings as above. <Electronically signed by Bob Lee > 06/05/20 [id number]
== END ==
LOC: M SMT PRO 09:13
PROVIDERS: ATTEND Urology
DX: N40.0 Benign prostatic hyperplasia without lower urinary tract symptoms (principal)
CPT/HCPCS: 55700; 76872; 76942; G0416

== ENCOUNTER → 2020-06-14 | Outpatient (REF) | payer MEDICARE, BC ==
[2020-06-14 17:53] LABS: APPEARANCE, URINE CLEAR (CLEAR); BACTERIA, URINE AUTO NEGATIVE (NEGATIVE); BILIRUBIN, URINE AUTO NEGATIVE (NEGATIVE); BLOOD, URINE BLOOD 3+ (NEGATIVE); COLOR, URINE YELLOW (YELLOW); GLUCOSE, URINE (UA) AUTO NEGATIVE (NEGATIVE); KETONE, URINE AUTO NEGATIVE (NEGATIVE); LEUKOCYTE ESTERASE, URINE AUTO NEGATIVE (NEGATIVE); NITRITE, URINE AUTO NEGATIVE (NEGATIVE); PROTEIN, URINE AUTO NEGATIVE (NEGATIVE); RBC, URINE AUTO 7 /HPF (0-3); SQUAMOUS EPITHELIAL CELL UR AU 0 /HPF (0-6); UROBILINOGEN, URINE AUTO 0.2 mg/dL (0.0-2.0); WBC, URINE AUTO 3 /HPF (0-3)
== END ==
LOC: M SMT 17:06
PROVIDERS: ATTEND Urology
DX: R30.0 Dysuria (principal)

== ENCOUNTER 2020-08-20 15:11 | Observation (INO) | payer MEDICARE, BC ==
[~2020-08-20] VITALS: Ht 175.3 cm; Wt 94.8 kg
--- NOTE | 2020-08-20 16:24 | REP ---
INDICATION: DYSPNEA/COUGH. COMPARISON: 05/24/2015 from an outside institution TECHNIQUE: Portable FINDINGS: The technique utilized in obtaining the radiograph has magnified the cardiac silhouette and accentuated the interstitial markings. There is mild cardiomegaly accentuated by technique. A somewhat patchy appearing opacity has developed in the right lower lobe, however, there is overlying soft tissue accentuating the finding. There is evidence to suggest mild right CP angle blunting. The left lung is clear and stable. The osseous structures are unchanged. IMPRESSION: Evidence of a right lower lobe opacity as described above. Developing pneumonia cannot be excluded. The small con committed right pleural effusion cannot be ruled out. There is evidence of mild cardiomegaly. <Electronically signed by Abdi Mcgee > 08/20/20 [id number]
[2020-08-20 16:38] LABS: BASO % 0.6 % (0.0-1.0); EOS # 0.3 10^3/uL (0.0-0.5); EOS % 4.7 % (0.0-3.0); HEMATOCRIT 42.2 % (42.0-52.0); HEMOGLOBIN 14.3 g/dl (13.5-17.5); LYMPH # 1.5 10^3/uL (1.5-5.0); LYMPH % 20.7 % (24.0-44.0); MEAN CORPUSCULAR HEMOGLOBIN 31.4 pg (27.0-33.0); MEAN CORPUSCULAR HGB CONC 33.9 g/dl (32.0-36.5); MEAN CORPUSCULAR VOLUME 92.7 fl (80.0-96.0); MONO # 0.7 10^3/uL (0.0-0.8); MONO % 10.5 % (2.0-8.0); NEUTROPHILS # 4.5 10^3/uL (1.5-8.5); NEUTROPHILS % 63.1 % (36.0-66.0); PLATELET COUNT, AUTOMATED 199 10^3/uL (150-450); RED BLOOD COUNT 4.55 10^6/uL (4.30-6.10); WHITE BLOOD COUNT 7.1 10^3/uL (4.0-10.0)
--- NOTE | 2020-08-20 16:56 | ED PDOC ---
Post-Departure Follow-Up dr kendra torres faxed formal report of cxr for fu Nadia Jane MD Aug 20, 2020 16:56
--- NOTE | 2020-08-20 17:09 | ECGEPIP ---
[facility] - ED Test Date: 2020-08-20 Pat Name: OLIMPIA MAYO Department: Room: - Gender: Male Exercise Instructor: : 1955 Requested By: GEORGIANA Guillermo Order Number: [id number] Reading MD: Arpita Zamorano Measurements Intervals [place] Rate: 61 P: 58 MO: 174 QRS: 44 QRSD: 90 T: 61 QT: 466 QTc: 469 Interpretive Statements Sinus rhythm with occasional premature ventricular complexes nsttw abnormality prolonged qtc no prior Electronically Signed on 08-20-2020 17:09:01 EDT by Arpita Zamorano
[2020-08-20 17:10] LABS: ALBUMIN 3.6 GM/DL (3.2-5.2); ALT/SGPT 39 U/L (12-78); BILIRUBIN,DIRECT 0.1 MG/DL (0.0-0.2); BILIRUBIN,TOTAL 0.4 MG/DL (0.2-1.0); BLOOD UREA NITROGEN 21 MG/DL (7-18); CALCIUM LEVEL 8.7 MG/DL (8.8-10.2); CARBON DIOXIDE LEVEL 31 MEQ/L (21-32); CHLORIDE LEVEL 103 MEQ/L (98-107); CPK CREATINE PHOSPHOKINASE 146 U/L (39-308); GLOMERULAR FILTRATION RATE > 60.0 (>49); GLUCOSE, FASTING 87 MG/DL (70-100); MB/CK RELATIVE INDEX 0.68 (< OR =4); NT-PRO BNP 74 PG/ML (<125); POTASSIUM SERUM 3.6 MEQ/L (3.5-5.1); SODIUM LEVEL 140 MEQ/L (136-145); THYROXINE (T4) 7.7 UG/DL (4.5-12.0); TOTAL PROTEIN 6.6 GM/DL (6.4-8.2); TROPONIN I < 0.02 NG/ML (< 0.10)
[2020-08-20] MEDS ORDERED: ISOVUE-370 76% 100ML VIAL As Ordered ONE (18:54)
[2020-08-20] MEDS ORDERED: NS 500 ML IV ONE (20:10)
--- NOTE | 2020-08-20 20:43 | REPVR ---
PROCEDURE INFORMATION: Exam: CTA Chest With Contrast Exam date and time: 08/20/2020 7:50 PM Age: 65 years old Clinical indication: Pain; Angina pectoris; Additional info: Chest pain, syncope TECHNIQUE: Imaging protocol: Computed tomographic angiography of the chest with contrast. 3D rendering (Not supervised by radiologist): MIP and/or 3D reconstructed images were created by the technologist. Radiation optimization: All CT scans at this facility use at least one of these dose optimization techniques: automated exposure control; mA and/or kV adjustment per patient size (includes targeted exams where dose is matched to clinical indication); or iterative reconstruction. Contrast material: ISOVUE 370; Contrast volume: 100 ml; Contrast route: INTRAVENOUS (IV); COMPARISON: CT ANGIO CHEST - OUTSIDE PRIOR 04/16/2015 2:08 PM FINDINGS: Pulmonary arteries: There is opacification of the pulmonary arteries and no evidence of pulmonary embolus. Aorta: There is opacification of the aorta which appears intact. Lungs: There is atelectasis and infiltrate at the right posterior lung base. There is an area of segmental atelectasis and infiltrate at the posterior left lower lobe. Pleural spaces: Unremarkable. No pneumothorax. No pleural effusion. Heart: The heart is normal in size and there is no pericardial effusion. Lymph nodes: Unremarkable. No enlarged lymph nodes. Adrenal glands: Normal adrenal glands. Bones/joints: There is mild kyphosis of the thoracic spine and some bridging osteophyte formation. There is posterior osteophyte formation at the lower cervical and upper thoracic spine. Soft tissues: Unremarkable. IMPRESSION: 1. No evidence of pulmonary embolus. 2. There is atelectasis and infiltrate in the lung bases greater on the left. Electronically signed by: Kirk Burt On 08/20/2020 20:43:26 PM
[2020-08-20] MEDS ORDERED: HumaLOG INSULIN (NovoLOG) PER UNIT SC SCH (21:00)
[2020-08-20] MEDS ORDERED: cefTRIAXone SOD 1 GM in D5W MINI-BAG PLUS 50 ML IV ONE (22:20)
[2020-08-20] MEDS ORDERED: MAALOX 30 ML SUSP *UDC PO PRN (22:20)
[2020-08-20] MEDS ORDERED: AZITHROMYCIN INJ 500 MG, VIAL MATE ADAPTER 1 EACH in NS 250 ML IV ONE (22:20)
[2020-08-20] MEDS ORDERED: GLUCAGON INJ 1MG VIAL SC PRN (22:20)
[2020-08-20] MEDS ORDERED: MOM 30ML SUSPENSION UDC PO PRN (22:20)
[2020-08-20] MEDS ORDERED: GLUCOSE 4GM CHEW TABLET PO PRN (22:20)
[2020-08-20] MEDS ORDERED: DEXTROSE 50% 50 ML SYRINGE IV PRN (22:20)
[2020-08-20] MEDS ORDERED: ACETAMINOPHEN TAB 650MG DOSE (2X325MG) PO PRN (22:20)
--- NOTE | 2020-08-20 22:22 | HPEPDOC ---
[facility] Medical History & Physical Date of Admission Aug 20, 2020 Date of Service: Aug 20, 2020 Attending Physician: TAE YOUNG MD History and Physical TIME OF SERVICE: 1120pm CHIEF COMPLAINT: falls HISTORY OF PRESENT ILLNESS: On Thursday afternoon while walking found himself on the ground; he is not sure how he fell but bystanders helped him up. While asleep on Thursday evening he suddenly woke up and was aware of his heart racing and felt short of breath despite having his CPAP machine on; his BP, using a wrist cuff was 65/40 but repeat readings showed improvement so he went back to sleep. At around 445AM on Thursday morning he woke up again and had chest pain but went back to sleep. Later on during the day on Thursday he had another episode where he lost consciousness so he came to the ER for evaluation. He denied f/c/n/v/d/ or change in his chronic cough. REVIEW OF SYSTEMS: 12-point review of systems negative except as listed in HPI PAST MEDICAL/ SURGICAL HISTORY: essential HTN, DLP, COPD, BPH, ED, NORMAN CPAP 7cmH2O, class 1 obesity, Gastric bypass, tonsillectomy, right sided orchiectomy SOCIAL HISTORY: former smoker FAMILY HISTORY: both parents ALLERGIES: Please see below. HOME MEDICATIONS: Please see below. PHYSICAL EXAMINATION: Vital Signs Date Time Temp Pulse Resp B/P (MAP) Pulse Ox O2 Delivery O2 Flow Rate FiO2 08/20/20 15:12 97.8 73 17 121/62 (81) 94 Room Air GENERAL APPEARANCE: well nourished and developed / NAD HEENT: EOMI/ MMM&P CARDIOVASCULAR: RRR/NMRG LUNGS: CTAB on RA ABDOMEN: contour obese MUSCULOSKELETAL: MANUEL x 4 INTEGUMENT: not flushed or pale or cyanotic NEUROLOGICAL: CN 2-12 intact /speech not dysarthric PSYCHIATRIC: A&O x 3/ able to understand and follow all commands LABORATORY DATA: 08/20/20 16:23 Immature Granulocyte % (Auto) 0.4, Neutrophils (%) (Auto) 63.1, Lymphocytes (%) (Auto) 20.7L, Monocytes (%) (Auto) 10.5H, Eosinophils (%) (Auto) 4.7H, Basophils (%) (Auto) 0.6, Neutrophils # (Auto) 4.5, Lymphocytes # (Auto) 1.5, Monocytes # (Auto) 0.7, Eosinophils # (Auto) 0.3, Basophils # (Auto) 0.0, Nucleated Red Blood Cells % (auto) 0.0, Anion Gap 6L, Glomerular Filtration Rate > 60.0, Calcium Level 8.7L, Total Bilirubin 0.4, Direct Bilirubin 0.1, Aspartate Amino Transf (AST/SGOT) 28, Alanine Aminotransferase (ALT/SGPT) 39, Alkaline Phosphatase 52, Total Creatine Kinase 146, Creatine Kinase MB 1.0, Creatine Kinase MB Relative Index 0.68, Troponin I < 0.02, SB-Bmp-P-Type Natriuretic Peptide 74, Total Protein 6.6, Albumin 3.6, Albumin/Globulin Ratio 1.2, Thyroid Stimulating Hormone (TSH) 1.330, Thyroxine (T4) 7.7 IMAGING: Chest xray IMPRESSION: Evidence of a right lower lobe opacity as described above. Developing pneumonia cannot be excluded. The small con committed right pleural effusion cannot be ruled out. There is evidence of mild cardiomegaly. CTA IMPRESSION: 1. No evidence of pulmonary embolus. 2. There is atelectasis and infiltrate in the lung bases greater on the left. MICROBIOLOGY: respiratory panel neg ASSESSMENT: is a 65 yr old essential HTN, DLP, COPD, BPH, ED, NORMAN CPAP 7cmH2O, class 1 obesity evaluation of syncope, chest pain and acute COPD. PLAN: 1 Syncope Plan: orthostats / fall precautions/ telemetry / telemetry to r/o arrhythmia / f/u Echo to assess for pulm HTN and Aortic stenosis 2 Chest Pain Plan: telemetry / f/u trops 3 Acute COPD Plan: supplemental O2 / continuous pulse oximetry / aspiration precautions / COPD diet / f/u ABG, d-dimer, influenza, sputum cx / DuoNeb Q6H, Albuterol Q4HP, Prednisone + PPI 4 essential HTN Plan: Amlodipine Atorvastatin 5 DLP Plan: Atorvastatin 6 NORMAN / class 1 obesity Plan: CPAP 7cmH2O, 7 BPH Plan; Tamsulosin DVT Px SCDs (Jeovanny Score = 1 = Pharmacological Px not indicated) Dispo: home after 2 midnights stay Home Medications Scheduled Amlodipine Besylate (Amlodipine Besylate) 5 Mg Tablet, 5 MG PO DAILY Ascorbic Acid (Vitamin C) 125 Mg Tab.chew, 1 CHW PO BID Atorvastatin Calcium (Atorvastatin Calcium) 20 Mg Tablet, 20 MG PO QHS Calcium Carbonate/Vitamin D3 (Calcium 500-Vit D3 200 Tablet) 1 Each Tablet, 1 TAB PO BID Cholecalciferol (Vitamin D3) (Vitamin D3) 1,000 Unit Tablet, 5,000 UNITS PO DAILY Collagen, Hydrolysate (Bovine) (Collagen Hydrolysate) 1 Gm Powder, 1 POW PO DAILY Cyanocobalamin (Vitamin B-12) (Vitamin B-12) 500 Mcg Tablet, 500 MCG PO DAILY Docusate Sodium (Stool Softener) 100 Mg Capsule, 100 MG PO DAILY Ferrous Sulfate (Ferrous Sulfate) 325 Mg Tablet.dr, 325 MG PO DAILY Fluticasone Propionate (Fluticasone Propionate) 16 Gm [place].susp, 2 SPRAY NA DAILY Folic Acid/Multivit-Min/Lutein (Multi-Vitamin Gummies) 1 Each Tab.chew, 1 CHW PO DAILY Guaifenesin (Mucinex) 600 Mg Tab.er.12h, 600 MG PO QHS Guaifenesin (Mucinex) 1,200 Mg Tab.er.12h, 1,200 MG PO DAILY Hydrochlorothiazide (Hydrochlorothiazide) 25 Mg Tablet, 25 MG PO DAILY Norton-3 Fatty Acids/Fish Oil (Fish Oil 1,000 mg Capsule) 1 Each Capsule, 1,000 MG PO DAILY Omeprazole (Omeprazole) 20 Mg Capsule.dr, 20 MG PO DAILY Polyethylene Glycol 3350 (Miralax) 17 Gm Powd.pack, 17 GM PO DAILY Potassium Chloride (K-Tab ER) 10 Meq Tablet.er, 10 MEQ PO DAILY Saw Helen (Saw Helen) 160 Mg Capsule, 160 MG PO DAILY Tamsulosin HCl (Flomax) 0.4 Mg Capsule, 0.4 MG PO DAILY Umeclidinium Brm/Vilanterol Tr (Anoro Ellipta 62.5-25 Mcg INH) 1 Each Blst.w.dev, 1 PUFF INH DAILY Zinc (Zinc) 50 Mg Tablet, 50 MG PO DAILY Scheduled PRN Sildenafil Citrate (Viagra) 100 Mg Tablet, 100 MG PO DAILY PRN for ERECTILE DYSFUNCTION Allergies Coded Allergies: No Known Allergies (Unverified , 03/19/20) A-FIB/CHADSVASC A-FIB History Current/History of A-Fib/PAF?: No Current PO Anticoag Therapy: No LWANGA,TAE MD Aug 20, 2020 22:22
--- NOTE | 2020-08-20 23:28 | REPVR ---
PROCEDURE INFORMATION: Exam: CT Head Without Contrast Exam date and time: 08/20/2020 10:17 PM Age: 65 years old Clinical indication: Dizziness; Additional info: Syncope TECHNIQUE: Imaging protocol: Computed tomography of the head without contrast. Radiation optimization: All CT scans at this facility use at least one of these dose optimization techniques: automated exposure control; mA and/or kV adjustment per patient size (includes targeted exams where dose is matched to clinical indication); or iterative reconstruction. COMPARISON: No relevant prior studies available. FINDINGS: Brain: The monae-white differentiation appears preserved. Cerebral ventricles: Normal appearing ventricles. Paranasal sinuses: No evidence of fluid in the paranasal sinuses. Ectopic to the formation posterior right maxillary sinus. Mastoid air cells: Visualized mastoid air cells are well aerated. Bones/joints: There is no evidence of fracture. Soft tissues: There is no evidence of soft tissue swelling. IMPRESSION: Normal appearing CT scan of the brain Electronically signed by: Kirk Burt On 08/20/2020 23:28:20 PM
[2020-08-20] MEDS ORDERED: methylPREDNISolone 125MG 2ML VIAL IV STA (23:36)
[2020-08-20] MEDS ORDERED: ALBUTEROL SULFATE 2.5 MG/0.5 ML INH NEB SOLN NEB PRN (23:40)
[2020-08-21] MEDS ORDERED: VITA500T40 PO (01:08)
[2020-08-21] MEDS ORDERED: FLUTISP (01:08)
[2020-08-21] MEDS ORDERED: ATOR1TAB21 PO (01:08)
[2020-08-21] MEDS ORDERED: VITA1CHW10 PO (01:08)
[2020-08-21] MEDS ORDERED: OYST500T91 PO (01:08)
[2020-08-21] MEDS ORDERED: MULTCHW12 PO (01:09)
[2020-08-21] MEDS ORDERED: COLLPOW8 PO (01:09)
[2020-08-21] MEDS ORDERED: FERR325T3 PO (01:09)
[2020-08-21] MEDS ORDERED: ZINC1TAB2 PO (01:09)
[2020-08-21] MEDS ORDERED: MIRA1POW3 PO (01:09)
[2020-08-21 02:00] VITALS: BP 146/86
[2020-08-21] MEDS: IPRATROPIUM 0.5MG/ALBUTEROL 2.5MG INH SOL UD 3ML (DUONEB) NEB SCH ×3 (02:31→13:11)
[2020-08-21 04:59] LABS: HEMOGLOBIN A1c 5.3 %
[2020-08-21 05:14] LABS: BLOOD UREA NITROGEN 17 MG/DL (7-18); CALCIUM LEVEL 8.9 MG/DL (8.8-10.2); CARBON DIOXIDE LEVEL 30 MEQ/L (21-32); CHLORIDE LEVEL 104 MEQ/L (98-107); CREATININE FOR GFR 0.82 MG/DL (0.70-1.30); GLOMERULAR FILTRATION RATE > 60.0 (>49); GLUCOSE, FASTING 204 MG/DL (70-100); POTASSIUM SERUM 3.1 MEQ/L (3.5-5.1); SODIUM LEVEL 140 MEQ/L (136-145); TROPONIN I < 0.02 NG/ML (< 0.10)
[2020-08-21 06:00] VITALS: BP 133/77
[2020-08-21 06:45] VITALS: BP_SYST 138; BP_SYST 139; BP_DIAS 84; BP_DIAS 86; BP_DIAS 89
[2020-08-21 07:27] LABS: HEMATOCRIT 46.5 % (42.0-52.0); HEMOGLOBIN 16.1 g/dl (13.5-17.5); MEAN CORPUSCULAR HEMOGLOBIN 32.1 pg (27.0-33.0); MEAN CORPUSCULAR HGB CONC 34.6 g/dl (32.0-36.5); MEAN CORPUSCULAR VOLUME 92.6 fl (80.0-96.0); PLATELET COUNT, AUTOMATED 201 10^3/uL (150-450); RED BLOOD COUNT 5.02 10^6/uL (4.30-6.10); WHITE BLOOD COUNT 6.6 10^3/uL (4.0-10.0)
[2020-08-21] MEDS ORDERED: HumaLOG INSULIN (NovoLOG) PER UNIT SC SCH (07:30)
[2020-08-21] MEDS ORDERED: POTASSIUM CHLORIDE 10 MEQ SR TABLET PO ONE ×2 (08:25→10:45)
[2020-08-21] MEDS ORDERED: OMEPRAZOLE 20 MG CAP PO SCH (09:00)
[2020-08-21] MEDS ORDERED: amLODIPine 5 MG TAB PO SCH (09:00)
[2020-08-21] MEDS ORDERED: MIRALAX *UNIT DOSE* 17GM PACKET PO SCH (09:00)
[2020-08-21] MEDS ORDERED: KCL 10MEQ/100ML SWI (KRUN) 10 MEQ in IV 1 EA IV SCH (09:00)
[2020-08-21] MEDS ORDERED: FLUTICASONE PROP 0.05% NASAL SPRAY 16 GM (FLONASE) SCH (09:00)
[2020-08-21] MEDS ORDERED: TAMSULOSIN 0.4 MG CAP PO SCH (09:00)
[2020-08-21] MEDS ORDERED: predniSONE 20 MG TAB PO SCH (09:00)
[2020-08-21] MEDS ORDERED: DOCUSATE SODIUM 100MG CAPSULE PO SCH (09:00)
[2020-08-21 09:19] VITALS: BP 128/82
[2020-08-21 12:55] LABS: BLOOD UREA NITROGEN 17 MG/DL (7-18); CALCIUM LEVEL 9.6 MG/DL (8.8-10.2); CARBON DIOXIDE LEVEL 29 MEQ/L (21-32); CHLORIDE LEVEL 103 MEQ/L (98-107); CREATININE FOR GFR 1.03 MG/DL (0.70-1.30); GLOMERULAR FILTRATION RATE > 60.0 (>49); GLUCOSE, FASTING 260 MG/DL (70-100); POTASSIUM SERUM 3.9 MEQ/L (3.5-5.1); SODIUM LEVEL 139 MEQ/L (136-145)
--- NOTE | 2020-08-21 13:59 | IPNPDOC ---
Text Note Date of Service The patient was seen on 08/21/20. NOTE Subjective: Patient was seen and examined at bedside this morning. He tells me that he only had one syncopal episode not several. Tells me he drinks a lot of coffee and very little water. I discussed with him that obviously diuretic probably contributing to his low blood pressure. He tells me that when he feels dizzy he often checks his blood pressure and finds it to be around 80/40. He was given fluid bolus in the ED and orthostats were performed were negative. There is no events on telemetry. He denies any chest pain or shortness of breath. There was no overnight events reported to me. Objective: Constitutional: Awake and alert, in no apparent distress ENT: Sclera are clear. Mucosa is moist. Respiratory: Lungs CTA bilaterally, minimal wheezing heard at bases. No respiratory distress. No use of accessory muscles. On room air. Cardiovascular: RRR S1 and S2 are normal, no murmur Gastrointestinal: Abdomen is soft, non distended, non tender, BS present. Musculoskeletal: No edema. No joint deformities. RUE 5/5, LUE 5/5, BLE 5/5 Neurologic: No focal neurological deficit. Mental Status: A&O x3, normal affect Assessment/plan: is a 65 yr old essential HTN, DLP, COPD, BPH, ED, NORMAN CPAP 7cmH2O, class 1 obesity evaluation of syncope, and chest pain # Syncope: Likely related to hypotension, not drinking much water. Blood pressure at home was reported to be 80/40. Blood pressure doing well now after fluid bolus. No events on telemetry. Orthostatic vitals negative. Echo was done to rule out valvular causes such as aortic stenosis. Follow-up the results with his PCP, no murmur heard on exam. # Chest pain: ACS ruled out . trops trended negative. EKG NSR. # Chronic COPD: at baseline. Reported as acute COPD on admission, he's minimally wheezing and speaking in full sentences to me, Perhaps he was worse yesterday but he denies it. Tells me he's mildly wheezing like this at baseline. No supplemental oxygen needed. Fu with PCP. # Hypertension: Continue home meds. Monitor and titrate # DLP: Atorvastatin # NORMAN / class 1 obesity :CPAP BMI 30.9, complicates care # BPH: Tamsulosin A Yousef Hospitalist Estefani BAKER I+O Estefani BAKER I+O Laboratory Tests 08/20/20 16:23 08/21/20 04:34 08/21/20 12:16 Vital Signs Date Time Temp Pulse Resp B/P (MAP) Pulse Ox O2 Delivery O2 Flow Rate FiO2 08/21/20 09:19 70 128/82 08/21/20 06:00 97.2 19 94 Room Air I&O- Last 24 Hours up to 6 AM 08/21/20 06:00 Intake Total 1005 ml Output Total 350 ml Balance 655 ml CALIN JENKINS MD Aug 21, 2020 13:59
[2020-08-21 14:00] VITALS: BP 133/72
--- NOTE | 2020-08-22 11:07 | ECHO ---
ECHOCARDIOGRAM DATE OF PROCEDURE: 08/21/2020 Age: Gender: Height: 175 cm Weight: 95 kg REFERRING PHYSICIAN: Dr. Mark Bell. INDICATION: Syncope, aortic stenosis. MEASUREMENTS: IVS 0.9 cm LV 5.0 cm LVPW 0.9 cm LA 3.5 cm Aorta 3.3 cm IVC 1.7 cm Mitral E wave velocity 122 E prime septal 16.2 E prime lateral 15.3 FINDINGS: This study is of acceptable technical quality. Underlying sinus tachycardia with ventricular rate approximately 100 BPM. Left ventricle is normal size and systolic function, estimated EF around 60 to 65%. Right ventricle also appears normal size and systolic function. Both atria appear normal. Aortic valve is likely tricuspid based on somewhat limited views. It has sclerotic abnormalities, and there is some restriction of cusp mobility. Mitral and tricuspid valves appear normal. Pulmonic valve is not well seen. No pericardial effusion is noted. Inferior vena cava is normal size and appropriately collapses with inspiration indicative of normal central venous pressure. Aortic root appears normal. Doppler interrogation reveals no aortic insufficiency and fairly trivial stenosis with mean gradient 10 mmHg. There is mild mitral and tricuspid insufficiency. Calculated pulmonary artery pressure is within normal limits. Evaluation of diastolic function is complicated by fusion of mitral E and A wave due to underlying tachycardia, but considering very high tissue Doppler velocities of mitral annulus, I suspect normal diastolic function. CONCLUSIONS: 1. Study is of acceptable technical quality, underlying sinus rhythm with ventricular rate around 100 BPM. 2. Normal LV size and systolic function, likely normal diastolic function. 3. Mild aortic stenosis. 4. Mild mitral and tricuspid insufficiency. 5. Likely normal central venous pressure and normal pulmonary artery pressure.
== END 2020-08-21 14:50 | disposition home or self-care (01) ==
LOC: M ED 15:11 → M ED INP 15:12 → ENRESERV 08-21 00:54 → M MSPAV 08-21 01:59
PROVIDERS: ADMIT Internal Medicine; ATTEND Family Medicine
DX: R55 Syncope and collapse (principal); R07.9 Chest pain, unspecified; I10 Essential (primary) hypertension; E78.49 Other hyperlipidemia; J44.9 Chronic obstructive pulmonary disease, unspecified; N40.0 Benign prostatic hyperplasia without lower urinary tract symptoms; G47.33 Obstructive sleep apnea (adult) (pediatric); E66.9 Obesity, unspecified; Z87.891 Personal history of nicotine dependence; Z79.899 Other long term (current) drug therapy; Z98.84 Bariatric surgery status
CPT/HCPCS: 36415; 70450; 71045; 71275; 80048; 80076; 82550; 82553; 83036; 83880; 84436; 84443; 84484; 85025; 85027; 87040; 87798; 93005; 93041; 93306; 94640; 94660; 94760; 96361; 96365; 96366; 96367; 96375; 99285; G0378; J0456; J0696; J2930; J7512; Q9967

== ENCOUNTER → 2020-09-14 | Outpatient (CLI) | payer MEDICARE ==
[~2020-09-14] MED LIST changes: +ATOR1TAB21 PO; +COLLPOW8 PO; +FERR325T3 PO; +FLUTISP; +MIRA1POW3 PO; +MULTCHW12 PO; +OYST500T91 PO; +VITA1CHW10 PO; +VITA500T40 PO; +ZINC1TAB2 PO
[2020-09-14 17:13] LABS: BLOOD UREA NITROGEN 19 MG/DL (7-18); CALCIUM LEVEL 8.9 MG/DL (8.8-10.2); CARBON DIOXIDE LEVEL 34 MEQ/L (21-32); CHLORIDE LEVEL 100 MEQ/L (98-107); CREATININE FOR GFR 0.86 MG/DL (0.70-1.30); GLOMERULAR FILTRATION RATE > 60.0 (>49); GLUCOSE, FASTING 213 MG/DL (70-100); POTASSIUM SERUM 3.8 MEQ/L (3.5-5.1); SODIUM LEVEL 137 MEQ/L (136-145)
== END ==
LOC: M LAB 15:55
PROVIDERS: ATTEND Family Medicine
DX: E87.6 Hypokalemia (principal)

== ENCOUNTER → 2020-09-20 | Outpatient (CLI) | payer MEDICARE ==
[2020-09-20 19:23] LABS: HEMOGLOBIN A1c 5.4 %
== END ==
LOC: M LAB 18:03
PROVIDERS: ATTEND Family Medicine
DX: R73.9 Hyperglycemia, unspecified (principal)

== ENCOUNTER → 2020-10-15 | Outpatient (REF) | payer MEDICARE, BC ==
[2020-10-15 14:23] LABS: APPEARANCE, URINE CLEAR (CLEAR); BACTERIA, URINE AUTO NEGATIVE (NEGATIVE); BILIRUBIN, URINE AUTO NEGATIVE (NEGATIVE); BLOOD, URINE BLOOD NEGATIVE (NEGATIVE); COLOR, URINE YELLOW (YELLOW); GLUCOSE, URINE (UA) AUTO NEGATIVE (NEGATIVE); KETONE, URINE AUTO NEGATIVE (NEGATIVE); LEUKOCYTE ESTERASE, URINE AUTO NEGATIVE (NEGATIVE); MUCUS, URINE SMALL (NEGATIVE); NITRITE, URINE AUTO NEGATIVE (NEGATIVE); PROTEIN, URINE AUTO NEGATIVE (NEGATIVE); RBC, URINE AUTO 2 /HPF (0-3); SPECIFIC GRAVITY URINE AUTO 1.016 (1.002-1.035); SQUAMOUS EPITHELIAL CELL UR AU 0 /HPF (0-6); UROBILINOGEN, URINE AUTO 0.2 mg/dL (0.0-2.0); WBC, URINE AUTO 2 /HPF (0-3)
== END ==
LOC: M SMT 13:35
PROVIDERS: ATTEND Urology
DX: R35.0 Frequency of micturition (principal)

== ENCOUNTER → 2020-12-07 | Outpatient (CLI) | payer MEDICARE ==
[2020-12-07 14:38] LABS: BASO % 0.4 % (0.0-1.0); EOS # 0.3 10^3/uL (0.0-0.5); EOS % 4.1 % (0.0-3.0); HEMATOCRIT 44.2 % (42.0-52.0); HEMOGLOBIN 14.8 g/dl (13.5-17.5); LYMPH # 1.2 10^3/uL (1.5-5.0); MEAN CORPUSCULAR HEMOGLOBIN 31.5 pg (27.0-33.0); MEAN CORPUSCULAR HGB CONC 33.5 g/dl (32.0-36.5); MONO # 0.7 10^3/uL (0.0-0.8); MONO % 8.7 % (2.0-8.0); NEUTROPHILS # 5.3 10^3/uL (1.5-8.5); NEUTROPHILS % 70.1 % (36.0-66.0); PLATELET COUNT, AUTOMATED 242 10^3/uL (150-450); WHITE BLOOD COUNT 7.6 10^3/uL (4.0-10.0)
[2020-12-07 15:13] LABS: ALBUMIN 3.5 GM/DL (3.2-5.2); ALT/SGPT 27 U/L (12-78); BILIRUBIN,TOTAL 0.5 MG/DL (0.2-1.0); BLOOD UREA NITROGEN 17 MG/DL (7-18); CARBON DIOXIDE LEVEL 34 MEQ/L (21-32); CHLORIDE LEVEL 102 MEQ/L (98-107); CREATININE FOR GFR 0.83 MG/DL (0.70-1.30); FOLATE 21.2 NG/ML; FREE T4 1.09 NG/DL (0.76-1.46); GLOMERULAR FILTRATION RATE > 60.0 (>49); GLUCOSE, FASTING 79 MG/DL (70-100); MAGNESIUM LEVEL 2.1 MG/DL (1.8-2.4); SODIUM LEVEL 140 MEQ/L (136-145); TOTAL 25(OH) VITAMIN D 55.6 NG/ML (30.0-100.0); TOTAL PROTEIN 6.9 GM/DL (6.4-8.2); VITAMIN B12 LEVEL 1412 PG/ML
== END ==
LOC: M LAB 13:17
PROVIDERS: ATTEND Nurse Practitioner Family
DX: R51.9 Headache, unspecified (principal); Z79.899 Other long term (current) drug therapy

== ENCOUNTER → 2020-12-14 | Outpatient (CLI) | payer MEDICARE ==
--- NOTE | 2020-12-14 12:45 | REPVR ---
PROCEDURE INFORMATION: Exam: MR Head Without and With Contrast Exam date and time: 12/14/2020 11:00 AM Age: 65 years old Clinical indication: Patient HX: Dizziness and medrano's; Additional info: MEDRANO, dizziness TECHNIQUE: Imaging protocol: MR of the head without and with intravenous contrast. Contrast material: PROHANCE; Contrast volume: 18 ml; Contrast route: INTRAVENOUS (IV); COMPARISON: CT Head without contrast 08/20/2020 11:11 PM FINDINGS: Brain: No acute infarct identified on the diffusion-weighted imaging. No parenchymal hemorrhage. The brain demonstrates generalized volume loss. Patchy foci of increased signal intensity in the deep white matter on the T2 weighted imaging most likely representing chronic small vessel ischemic change. No enhancing intracranial pathology. Cerebral ventricles: The ventricles are mildly enlarged in keeping with volume loss. Bones/joints: The upper cervical spine is visualized on the sagittal T1 sequence. 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 Marked disc height loss and spondylosis at C3-C4 and C4-C5 with central spinal canal and neural foraminal stenoses. Paranasal sinuses: Trace ethmoid mucosal thickening. Mastoid air cells: Normal as visualized. No mastoid effusion. Orbital cavity: Unremarkable. Soft tissues: Unremarkable. IMPRESSION: No acute intracranial findings. Electronically signed by: Dali Diaz On 12/14/2020 12:44:26 PM
== END ==
LOC: M PLARAD 08:35
PROVIDERS: ATTEND Nurse Practitioner Family
DX: R51.9 Headache, unspecified (principal); R42 Dizziness and giddiness; M47.812 Spondylosis without myelopathy or radiculopathy, cervical region

== ENCOUNTER → 2021-08-19 | Outpatient (CLI) | payer MEDICARE, BC ==
[~2021-08-19] MED LIST changes: +ALBU2.5V10 INH; -ALBU83IN INH; -D31000TA2 PO; +RA S160C PO; -SM S160C PO; +VITA100093 PO
[2021-08-19 09:43] LABS: ALBUMIN 3.4 GM/DL (3.2-5.2); ALT/SGPT 39 U/L (12-78); BILIRUBIN,TOTAL 0.4 MG/DL (0.2-1.0); BLOOD UREA NITROGEN 20 MG/DL (7-18); CALCIUM LEVEL 9.3 MG/DL (8.8-10.2); CARBON DIOXIDE LEVEL 34 MEQ/L (21-32); CHLORIDE LEVEL 107 MEQ/L (98-107); CHOLESTEROL LEVEL 128 MG/DL (<200); CHOLESTEROL RISK RATIO 2.909 (<5); CREATININE FOR GFR 0.77 MG/DL (0.70-1.30); GLOMERULAR FILTRATION RATE > 60.0 (>49); GLUCOSE, FASTING 87 MG/DL (70-100); HDL CHOLESTEROL 44 MG/DL (>40); LDL CHOLESTEROL 68 MG/DL (<100); NON-HDL-C 84 MG/DL; SODIUM LEVEL 145 MEQ/L (136-145); TOTAL PROTEIN 6.6 GM/DL (6.4-8.2); TRIGLYCERIDES LEVEL 80 MG/DL (<150)
== END ==
LOC: M LAB 08:27
PROVIDERS: ATTEND Nurse Practitioner Family
DX: E78.2 Mixed hyperlipidemia (principal); I10 Essential (primary) hypertension

== ENCOUNTER → 2021-08-29 | Outpatient (REF) | payer BC, MEDICARE ==
[2021-08-29 17:12] LABS: APPEARANCE, URINE CLEAR (CLEAR); BACTERIA, URINE AUTO NEGATIVE (NEGATIVE); BILIRUBIN, URINE AUTO NEGATIVE (NEGATIVE); BLOOD, URINE BLOOD NEGATIVE (NEGATIVE); COLOR, URINE YELLOW (YELLOW); GLUCOSE, URINE (UA) AUTO NEGATIVE (NEGATIVE); KETONE, URINE AUTO NEGATIVE (NEGATIVE); LEUKOCYTE ESTERASE, URINE AUTO 3+ (NEGATIVE); NITRITE, URINE AUTO NEGATIVE (NEGATIVE); PROTEIN, URINE AUTO NEGATIVE (NEGATIVE); RBC, URINE AUTO 1 /HPF (0-3); SPECIFIC GRAVITY URINE AUTO 1.015 (1.002-1.035); SQUAMOUS EPITHELIAL CELL UR AU 0 /HPF (0-6); UROBILINOGEN, URINE AUTO 0.2 mg/dL (0.0-2.0); WBC, URINE AUTO 5 /HPF (0-3)
== END ==
LOC: M SMT 16:43
PROVIDERS: ATTEND Urology
DX: R39.15 Urgency of urination (principal)

== ENCOUNTER → 2021-08-30 | Outpatient (CLI) | payer MEDICARE | LOC: M LAB 15:38 | PROVIDERS: ATTEND Urology | DX: Z12.5 Encounter for screening for malignant neoplasm of prostate (principal) | CPT/HCPCS: 36415; G0103 ==